=== PATIENT | male | born 1980 | race Caucasian/White ===

== ENCOUNTER → 2025-05-09 | Outpatient (CLI) | payer BC, SELFPAY ==
--- NOTE | 2025-05-09 16:30 | XR_ITS ---
Examination: MRI cervical spine without intravenous contrast Date and time of exam: May 09, 2025, 1653 hrs. Indications: Neck pain radiating to left upper arm numbness in the median beginning 6 years ago, worse the last month. Technique: Multiple axial and sagittal sections of the cervical spine to been obtained. T2 weighted sagittal sections, TR 3, 270, TE 117 T1-weighted sagittal sections, TR 500, TE 11 T1-weighted axial sections, TR 607, TE 12, axial sections TR 18, TE 27 and T2 weighted transverse sections, TR 3920, TE 122. Findings: Satisfactory alignment cervical vertebral bodies. No cervical fracture. Intact odontoid. Mild disc narrowing C6-C7 Diffuse cervical disc desiccation. Mild increased signal in the cervical cord. C2-C3 no disc protrusion C3-C4 moderate bilateral neural foraminal stenosis C4-C5 advanced bilateral neural foraminal stenosis C5-C6 advanced left neural foraminal stenosis C6-C7 4 mm left subarticular foraminal disc bulge indenting the ventral left margin cervical cord with advanced bilateral neural foraminal stenosis C7-T1 no disc protrusion Impression: Significant cervical spinal stenosis as above, including C6-C7 4 mm left subarticular foraminal disc bulge indenting the ventral margin cervical cord with advanced bilateral neural foraminal stenosis.
== END | disposition home or self-care (01) ==
LOC: SMRI 16:00
PROVIDERS: PCP Family Medicine; Referring Provider Nurse Practitioner Family; Visit Provider Nurse Practitioner Family
DX: M48.02 Spinal stenosis, cervical region (principal)
CPT/HCPCS: 72141